=== PATIENT | male | born 1980 | race Caucasian/White ===

== ENCOUNTER 2019-03-11 13:17 | Inpatient (IN) | payer OTHER ==
[~2019-03-11] VITALS: Ht 188 cm; Wt 102.7 kg
[2019-03-11] MEDS ORDERED: SODIUM CHLORIDE 0.9% 1000ML 1,000 ML IV STA (14:02)
[2019-03-11] MEDS ORDERED: ONDANSETRON HCL INJ 2MG/ML 2ML 2 MG/ML VIAL IV ONE (14:15)
[2019-03-11] MEDS ORDERED: FAMOTIDINE 20 MG/2 ML VIAL IV ONE ×2 (14:15→14:19)
[2019-03-11] MEDS ORDERED: SODIUM CHLORIDE 0.9% 1000ML 1,000 ML ONE (14:19)
[2019-03-11] MEDS ORDERED: ONDANSETRON HCL INJ 2MG/ML 2ML 2 MG/ML VIAL ONE (14:19)
[2019-03-11] MEDS ORDERED: IOPAMIDOL 370 MG/ML 200 ML INFUS..BTL INJ ONE (14:41)
[2019-03-11] MEDS ORDERED: SODIUM CHLORIDE 0.9% 50ML 50 ML ONE (14:42)
[2019-03-11] MEDS ORDERED: SODIUM CHLORIDE 0.9% 1000ML 1,000 ML IV SCH (15:32)
--- NOTE | 2019-03-11 15:34 | Diagnostic Imaging Report ---
EXAMINATION: CT of the abdomen and pelvis with contrast. TECHNIQUE: Spiral CT images of the abdomen and pelvis were performed from the lung bases to the lesser trochanters after the intravenous administration of 100 cc of Isovue 370 and the oral administration of 1 or. Coronal and sagittal reformatted images were obtained. COMPARISON: None. CLINICAL HISTORY:Hematuria DISCUSSION: ABDOMEN/PELVIS: LOWER THORAX:Mild bilateral lower lobe dependent atelectasis. HEPATOBILIARY: No focal hepatic lesions. No intra or extrahepatic biliary ductal dilation. GALLBLADDER: No radio-opaque stones or sludge. No wall thickening. SPLEEN: No splenomegaly. PANCREAS: No focal masses or ductal dilatation. ADRENALS: No adrenal nodules. KIDNEYS/URETERS: No hydronephrosis, stones, or solid enhancing mass lesions. Cortical scarring in the inferior pole of the right kidney (coronal image 72). PELVIC ORGANS/BLADDER: Bladder is unremarkable, without focal lesions or wall thickening. Prostate is unremarkable. PERITONEUM/RETROPERITONEUM: No free air or fluid. LYMPH NODES: No intra-abdominal, retroperitoneal, pelvic or inguinal lymphadenopathy. VESSELS: The celiac trunk,superior and inferior mesenteric and bilateral renal arteries are patent The portal, superior mesenteric and splenic veins are patent. GI TRACT: No bowel dilation or evidence of obstruction. Appendix is well identified and normal in caliber BONES AND SOFT TISSUE: No aggressive lytic lesions. Soft tissues are unremarkable. IMPRESSION: 1. No acute abdominal pelvic abnormalities. No renal or ureteral calculi, hydronephrosis or evidence of obstruction. No focal bladder lesions or wall thickening. Signed by: Dr. Anmol Chavez M.D. on 03/11/2019 3:31 PM
[2019-03-11] MEDS ORDERED: HYDROMORPHONE 2MG/ML 2 MG/ML ML IV PRN (15:45)
[2019-03-11] MEDS ORDERED: LORAZEPAM INJ 2 MG/ML VIAL IV ONE (15:45)
[2019-03-11] MEDS ORDERED: ONDANSETRON HCL INJ 2MG/ML 2ML 2 MG/ML VIAL IV PRN (15:45)
[2019-03-11] MEDS ORDERED: ZOLPIDEM TARTRATE 5 MG TAB PO PRN (15:45)
[2019-03-11] MEDS ORDERED: HYDROCODONE/APAP 7.5MG-325MG 1 EA TAB PO PRN (15:45)
[2019-03-11] MEDS ORDERED: DIPHENHYDRAMINE HCL INJ 50 MG/ML VIAL IV PRN (15:45)
[2019-03-11] MEDS ORDERED: CEFTRIAXONE SOD 1 GM VIAL IV ONE (15:45)
--- OUTSIDE RECORDS SUMMARY | 2019-03-11 15:55 | XMS REPORT ---
Author [facility] Address Unknown Phone Unavailable Care Team Providers Care Associate Professor Of Philosophy Name Role Phone Merary AMARAL Unavailable Unavailable Problems This patient has no known problems. Allergies, Adverse Reactions, Alerts This patient has no known allergies or adverse reactions. Medications This patient has no known medications. Results Test Description Test Time Test Comments Text Results Atomic Results Result Comments CT ABD/PEL WITH CONTRAST-HOPD 2019-03-11 15:14:00 [place] [id number] Patient Name: ANIKA CHAMPION MR #: [id number] : 1980 Age/Sex: 38/M Req #: [id number] Adm Physician: Ordered by: KYLE AMARAL MD Report #: [id number] Location: [facility] Room/Bed: Procedure: [id number] HOPD/CT ABD/PEL WITH CONTRAST-HOPD Exam Date: 03/11/19 Exam Time: 1453 REPORT STATUS: Signed EXAMINATION: CT of the abdomen and pelvis with contrast. TECHNIQUE: Spiral CT images of the abdomen and pelvis were performed from the lung bases to the lesser trochanters after the intravenous administration of 100 cc of Isovue 370 and the oral administration of 1 or. Coronal and sagittal reformatted images were obtained. COMPARISON: None. CLINICAL HISTORY:Hematuria DISCUSSION: ABDOMEN/PELVIS: LOWER THORAX:Mild bilateral lower lobe dependent atelectasis. HEPATOBILIARY: No focal hepatic lesions. No intra or extrahepatic biliary ductal dilation. GALLBLADDER: No radio-opaque stones or sludge. No wall thickening. SPLEEN: No splenomegaly. PANCREAS: No focal masses or ductal dilatation. ADRENALS: No adrenal nodules. KIDNEYS/URETERS: No hydronephrosis, stones, or solid enhancing mass lesions. Cortical scarring in the inferior pole of the right kidney (coronal image 72). PELVIC ORGANS/BLADDER: Bladder is unremarkable, without focal lesions or wall t hickening. Prostate is unremarkable. PERITONEUM/RETROPERITONEUM: No free air or fluid. LYMPH NODES: No intra-abdominal, retroperitoneal, pelvic or inguinal lymphadenopathy. VESSELS: The celiac trunk,superior and inferior mesenteric and bilateral renal arteries are patent The portal, superior mesenteric and splenic veins are patent. GI TRACT: No bowel dilation or evidence of obstruction. Appendix is well identified and normal in caliber BONES AND SOFT TISSUE: No aggressive lytic lesions. Soft tissues are unremarkable. IMPRESSION: 1. No acute abdominal pelvic abnormalities. No renal or ureteral calculi, hydronephrosis or evidence of obstruction. No focal bladder lesions or wall thickening. Signed by: Dr. Nima Chavez M.D. on 03/11/2019 3:31 PM Dictated By: NIMA CHAVEZ MD [id number] Transcribed By: ESTELLA on 03/11/19 1531 COPY TO: KYLE AMARAL MD
[2019-03-11] MEDS ORDERED: CEFTRIAXONE SOD 2 GM/NS 100 ML 100 ML IV ONE (16:00)
--- NOTE | 2019-03-11 16:15 | NUR ---
attempted a bangura and was unsuccessful as pt could not tolerate the pain and felt obstruction while trying to insert bangura half way. No bloody discharge after removing the bangura.
[2019-03-11] MEDS ORDERED: LORAZEPAM INJ 2 MG/ML VIAL ONE (16:35)
--- NOTE | 2019-03-11 16:40 | NUR ---
Called [facility] to transport pt to ER.
[2019-03-11] MEDS ORDERED: CEFTRIAXONE SOD 1 GM/NS 50 ML 50 ML IV ONE (16:41)
[2019-03-11] MEDS ORDERED: FAMOTIDINE 20 MG/2 ML VIAL IV SCH (17:00)
--- NOTE | 2019-03-11 17:01 | NUR ---
Report to YAJAIRA Kowalski pt is going to room 299
--- NOTE | 2019-03-11 17:46 | NUR ---
Recvd patient from free standing ER, AAOx3, denies any abdominal discomfort now, not in any distress,Resp even and unlabored, call light in reach, Dr Cervantes here for rounds
[2019-03-11 18:02] VITALS: BP 124/66
--- NOTE | 2019-03-11 19:00 | NUR ---
patient received awake, alert, lying quietly in bed. no c/o pain noted. at the bedside. new orders noted for surgery in am. pm assessment complete. patient instructed to call for assistance when needed.
[2019-03-11 19:30] VITALS: BP 128/60
--- NOTE | 2019-03-11 20:03 | Consultation ---
DATE OF CONSULTATION: 03/11/2019 Dr. Cervantes is dictating a consultation to Dr. Fortino Dumont. REASON FOR CONSULTATION: Hematuria, difficulty urinating. HISTORY: A 38-year-old male who was in an ambulatory emergency room with hematuria and difficulty urinating. The patient states that the problem started 6 days ago after having had sex with his . The next day he noticed that there was difficulty urinating and pain at the tip of his penis. It took him a while to finally pee and when he urinated, he noticed that he had a clump of semen-blood that came out of his penis followed by urination. He stated that after that he was able to urinate well until today when he had difficulty urinating. Again, at this point, he peed and he had blood in the urine. At that point, he went to the [facility]. They could not pass a catheter and I was called in for consultation on the patient. Prior to that last Tuesday when the clump of tissue came out of his penis. He called [facility] and spoke with a urologist. At that time, he was told to abstain from sex for two weeks and then to try again and see if the same thing happen. If the same thing happen where he has blood in the semen then to make an appointment to see them in the office at [facility]. The patient is now in the hospital for evaluation and treatment. PAST MEDICAL HISTORY: Essentially negative. PAST SURGICAL HISTORY: Negative. MEDICATIONS: None. CT scan shows a normal bladder with no clots inside, no thickening of the bladder wall, no stones, no hydronephrosis. On the right kidney of the lower pole, there is a filling defect compatible with scarring, although it is pretty large. I asked the patient if he had any trauma, he denied it, if he had any surgery, he denies that as well. He also denies having kidney stones or being treated for anything for the kidney stones. He also denies having had any sexually transmitted diseases, any instrumentation in his urethra or any trauma of the urethra. He essentially has a completely negative history. RECOMMENDATION: I attempted to pass a catheter into his bladder coude after I placed local anesthetic into the penis. Even placing the local anesthetic into the penis, I had difficulty pushing that it in suggesting that the patient has stricture disease or he had been previously instrumented in the ambulatory emergency room and there was some trauma. Currently, I told the patient that I would like to not introduce anything else into the penis at this point. I would take the patient to the operating room tomorrow to do a retrograde urethrogram, cystoscopy and visual internal urethrotomy or dilatation of the urethra. The cause of the problem at this point is not very well known since the patient has a complete negative history of Sandoval catheterization in the past until today, any instrumentation such as dilatation or cystoscopy and negative history of having had gonorrhea or any other diseases of the urethra. In fact, he tells me that the only surgery he has had is a vasectomy. MD FELICITA Navarro/MODL /[id number]
[2019-03-11] MEDS: FAMOTIDINE 20 MG/2 ML VIAL IV SCH (20:30)
[2019-03-11 20:58] VITALS: BP 128/60
--- NOTE | 2019-03-12 | NUR ---
patient able to void without difficulty. urine remains bloody per patient. no c/o pain noted at this time.
--- NOTE | 2019-03-12 01:09 | History and Physical ---
PRIMARY CARE DOCTOR: Dr. Andrews Root, [facility]. CHIEF COMPLAINT: Trouble passing urine. HISTORY OF PRESENT ILLNESS: Mr. Meyers is a pleasant 38-year-old gentleman with trouble passing urine. He has a urologic history of vasectomy by Dr. Alex Hill, a urologist in [facility]. The patient has reported ailments one time in his past when he got checked. Other than that he has been free of any long-term genitourinary problems. Few days ago, he started to have a small amount of bleeding from his urethra. This got better. However, on the day of admission, he was having trouble passing urine. He started to pass a lot more blood and some small clots came out. The patient denies any history of bleeding diathesis. The patient states he had sex with his five days prior to hospitalization, but prior to that do not detect an issue. He claims he tested negative for STDs prior to getting this time. He comes to the emergency room. It was noted that he has extreme problems passing urine. CT abdomen and pelvis was mostly unremarkable except for distended bladder. Multiple practitioners tried to place a catheter including urologist, where a coude catheter was not able to be placed due to obstruction of the urethra. PAST MEDICAL HISTORY: Vasectomy, one prior diagnosis of infection. MEDICATIONS: The patient is on vitamins with special contents and he calls them high-scale upper end vitamins. ALLERGIES: NO KNOWN DRUG ALLERGIES. SOCIAL HISTORY: No smoking. No drinking. No drugs. 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 FAMILY HISTORY: Noncontributory. REVIEW OF SYSTEMS: GENERAL: No weight changes. OPHTHALMOLOGIC: No double vision. ENT: No mouth ulcers. ENDOCRINE: No known thyroid disease. PULMONARY: No asthma. CARDIAC: No heart attacks. GI: No chronic constipation. : No history of kidney stones in the past. NEUROLOGIC: No seizures. DERMATOLOGIC: No rashes. PSYCHIATRIC: No depression. PHYSICAL EXAMINATION: VITAL SIGNS: Afebrile, vital signs stable, noted per the chart record. GENERAL: In no acute distress, alert and calm. HEENT: Normocephalic and atraumatic. NECK: Supple. Throat midline. LUNGS: Bilateral air entry, clear. CARDIOVASCULAR: S1 and S2. No murmurs, rubs, or gallops. ABDOMEN: Soft and nontender. EXTREMITIES: No clubbing. No cyanosis. There is no edema. INTEGUMENT: No rash. No purpura. LABORATORY DATA: BUN 14 and creatinine 0.9. White count 8, hematocrit 30, and platelets 242. IMPRESSION AND PLAN: 1. Severe urethral obstruction. 2. Urinary retention. 3. Hematuria. 4. History of vasectomy, history of infection long time ago. Continue observation. Continue to allow urinary passage. If an emergency arises, he may require emergency suprapubic catheter placement. The patient in that way he may go for cystoscopy with evaluation and possible dilatation whenever procedures are deemed necessary. specialist, Dr. Sebastien Cervantes has been consulted and we very much appreciate his followup. Thank you very much, Dr. Root, for allowing me and Dr. Dumont, the hospitalist, to participate in the care of Mr. Meyers. Please do not hesitate to call if there are any questions. MD WILLIAM Okeefe/ELADIO /[id number]
[2019-03-12 01:44] VITALS: BP 119/58
[2019-03-12 05:55] VITALS: BP 116/60
--- NOTE | 2019-03-12 06:00 | NUR ---
patient oob to shower. patient continues to void with some difficulty. minimal blood noted with last void this am. surgical consent obtained at this time. patient remains npo and patient verbalizes understanding of this.
[2019-03-12 06:22] LABS: BASOPHILS % 0.4 % (0.0-1.0); EOSINOPHILS # (AUTO) 0.2 (0.0-0.4); EOSINOPHILS % 2.6 % (0.0-6.0); HEMATOCRIT 45.1 % (38.2-49.6); HEMOGLOBIN 15.4 g/dL (14.0-18.0); LYMPHOCYTES # (AUTO) 1.9 (1.0-3.2); LYMPHOCYTES % 24.8 % (18.0-39.1); MEAN CORPUSCULAR HEMOGLOBIN 28.7 pg (28-32); MEAN CORPUSCULAR HGB CONC 34.1 g/dL (31-35); MONOCYTES # (AUTO) 0.9 (0.2-0.8); MONOCYTES % 11.4 % (4.4-11.3); NEUTROPHILS # (AUTO) 4.6 (2.1-6.9); NEUTROPHILS % 60.5 % (38.7-80.0); PLATELET COUNT 246 x10e3/uL (140-360); RED BLOOD COUNT 5.37 x10e6/uL (4.3-5.7); RED CELL DISTRIBUTION WIDTH 13.2 % (11.7-14.4)
[2019-03-12 06:31] LABS: INR 0.96; PARTIAL THROMBOPLASTIN TIME 35.8 seconds (23.8-35.5); PROTHROMBIN TIME 13.3 seconds (11.9-14.5)
[2019-03-12 06:38] LABS: BLOOD UREA NITROGEN 13 mg/dL (7-26); BUN/CREATININE RATIO 13 (6-25); CALCIUM 9.1 mg/dL (8.4-10.2); CARBON DIOXIDE 20 mmol/L (22-29); CHLORIDE 109 mmol/L (98-107); CREATININE, SERUM 0.97 mg/dL (0.72-1.25); EST GLOMERULAR FILTRATION RATE > 60 ML/MIN (60-); GLUCOSE 90 mg/dL (74-118); SODIUM 139 mmol/L (136-145)
--- NOTE | 2019-03-12 06:58 | NUR ---
RECEIVED PATIENT RESTING IN BED. NO ACUTE DISTRESS NOTED, RESPIRATIONS EVEN AND UNLABORED. FAMILY MEMBER AT BEDSIDE. CALL LIGHT WITHIN REACH. BED IN THE LOWEST POSITION.
[2019-03-12 07:38] LABS: ALBUMIN 3.9 g/dL (3.5-5.0); BILIRUBIN,DIRECT 0.2 mg/dL (0.0-0.5)
[2019-03-12 07:57] VITALS: BP 122/58
[2019-03-12] MEDS: FAMOTIDINE 20 MG/2 ML VIAL IV SCH (08:25)
[2019-03-12 08:54] VITALS: BP 122/58
--- NOTE | 2019-03-12 09:04 | NUR ---
PATIENT OFF THE UNIT FOR PROCEDURE AT THIS TIME.
[2019-03-12] MEDS ORDERED: IOPAMIDOL 610MG/1ML 300 MG/ML VIAL IV ONE ×2 (09:22→10:08)
--- NOTE | 2019-03-12 11:01 | NUR ---
Patient back to unit from procedure.
[2019-03-12] MEDS ORDERED: BACTRIM DS TAB1 EACH PO (11:16)
[2019-03-12] MEDS ORDERED: ULTRAM50 MG PO (11:17)
[2019-03-12 11:43] VITALS: BP 144/69
--- NOTE | 2019-03-12 13:19 | NUR ---
Received DC order from MD, patient is in stable condition. Denies pain or discomfort at this time. IV line to left AC DCD with tip intact, pressure applied to site, no bleeding noted. Bangura care education provided to patient, he verbalized understanding. Nurse provided patient with leg bag and bangura drainage bag. Patient teaching on how to change from drainage bag to leg bag provided, he verbalized understanding. Discharge folder which included DC paperwork and prescriptions on hand. Personal items on hand. Patient accompanied to private auto via wheelchair by staff.
[2019-03-12] MEDS ORDERED: SEVOFLURANE INHAL SOLN 250 ML PEN BTL ONE (18:03)
[2019-03-12] MEDS ORDERED: DEXAMETHASONE SOD PHOS INJ 4 MG/ML VIAL ONE (18:03)
[2019-03-12] MEDS ORDERED: PROPOFOL IV EMULSION 10 MG/ML 20 ML VIAL ONE (18:03)
[2019-03-12] MEDS ORDERED: LIDOCAINE HCL 2% LOCAL INJ 5 ML SDV VIAL INJ ONE (18:03)
[2019-03-12] MEDS ORDERED: ONDANSETRON HCL INJ 2MG/ML 2ML 2 MG/ML VIAL ONE (18:03)
[2019-03-12] MEDS ORDERED: MIDAZOLAM HCL 2 MG/2 ML VIAL ONE (19:54)
[2019-03-12] MEDS ORDERED: FENTANYL CITRATE/PF 100MCG/2 ML INJ ONE (19:54)
--- NOTE | 2019-03-13 05:36 | Discharge Summary ---
PRIMARY CARE DOCTOR: Dr. Andrews Root. FINAL DIAGNOSIS: Urethral stricture. B2B OUTSIDE SALES REPRESENTATIVE: Dr. Sebastien Cervantes, Urology. PROCEDURES AND STUDIES PERFORMED: 1. CT of the abdomen pelvis. 2. Cysto with urethral dilation. HISTORY: Per [facility] HOSPITAL COURSE: The patient was admitted with urinary retention due to urethral stricture. The urologist could not pass a coude in, therefore the patient was taken to the OR for cystoscopy and urethral dilation. The patient will go home with Sandoval catheter, Bactrim, and tramadol. The patient will follow up with [facility] urologist. We suspect this may be due to a football injury when he was a teenager. The patient was seen and examined today. CONDITION ON DISCHARGE: Improved. DISCHARGE MEDICATIONS: Please see medication reconciliation. Of note, I have discussed this case with Dr. Cervantes and also I have updated his primary care doctor. ching MD SERAFIN Byers/ELADIO /[id number] cc: [facility]
--- NOTE | 2019-03-20 10:20 | Diagnostic Imaging Report ---
PROCEDURE: X-RAY RETROGRADE PYELOGRAM COMPARISON: None. INDICATIONS: UTI FINDINGS: Multiple intraoperative spot images of the abdomen and pelvis were obtained. There is a urethral stricture. This was dilated with a balloon. Retrograde cannulation of both ureters was accomplished with contrast injected in the upper and lower tracts. No hydronephrosis is seen. A bubble of the proximal right ureter is present. No strictures are identified. There is also a bubble of the proximal left ureter identified. At the completion of the study a Sandoval catheter was placed to stent the urethral dilatation. Cumulative fluoro time: 15 seconds Cumulative area dose product: 116.90 cGycm2 Cumulative air kerma: 3.21 mGy CONCLUSION: 1. Retrograde pyelogram as described above. 2. Please see the full report provided by the performing physician. Tanner Victor D.O. Dictated by: Tanner Victor D.O. on 03/13/2019 at 15:11 Electronically approved by: Tanner Victor D.O. on 03/13/2019 at 15:11
--- NOTE | 2019-03-27 13:37 | Operative Report ---
DATE OF PROCEDURE: 03/11/2019 SURGEON: Sebastien Cervantes MD PREOPERATIVE DIAGNOSIS: Urinary retention. POSTOPERATIVE DIAGNOSIS: Bulbar urethral stricture, severe. OPERATION PERFORMED: Cystoscopy, balloon dilatation of bulbar urethral stricture severe, placement of Sandoval catheter, retrograde urethrogram. ANESTHESIOLOGIST: Staff. ANESTHESIA: General. PROCEDURE IN DETAIL: With the patient under satisfactory general anesthetic, the patient was placed in a supine position the operating table, legs were placed on stirrups, genitalia was then prepped with Betadine simple solution and draped in the usual manner. At this point, a 22-Senegalese cystourethroscope was passed per urethra and at bulbar urethra, a pinpoint stricture was identified. The instruments were removed, retrograde urethrogram was then done at this point and there was a 1 cm stricture located in the bulbar to membranous urethra. At this point, the cystoscope was placed again into the urethra and a 0.35 extra stiff guidewire was introduced under fluoroscopy into the bladder. After that was done, a ureteral dilator balloon was placed in through the urethra stricture, inflated to 12 atmospheres pressure and under fluoroscopy, the stricture opened up. At this point, the balloon was removed. Cystoscopy was performed again. Bladder was normal, no stones nor tumors. Prostate was open. With the guidewire in place, cystoscope was removed. A #20-Senegalese Sandoval catheter [place] tip was then introduced through the guidewire into the bladder, balloon was inflated and at this point, the guidewire was removed. The patient received B and O suppository, the Sandoval catheter was placed to a leg bag, and the patient was taken to recovery room in satisfactory condition. Urological discharge summary at this point is I discussed the case with Dr. Dumont. The patient was given tramadol and Bactrim DS. He will be discharged to go home to follow with his urologist at [facility]. I took pictures of his problem and gave it to the family so they can take it to the urologist at [facility], who will be following him. Sebastien Cervantes MD RRG/MODL /[id number]
== END 2019-03-12 13:21 | disposition home or self-care (01) | DRG 690 ==
LOC: FSED 13:17 → ERHOLD 15:37 → UNDOADMIN 15:48 → ERHOLD 15:48 → MED/SURG3 17:47
PROVIDERS: ADMIT Internal Medicine; ATTEND Internal Medicine
PROC: 0T7D8ZZ Dilation of Urethra, Via Natural or Artificial Opening Endoscopic (ICD-10-PCS; principal; 2019-03-11)
PROC: BT141ZZ Fluoroscopy of Kidneys, Ureters and Bladder using Low Osmolar Contrast (ICD-10-PCS; 2019-03-11)
DX: N13.5 Crossing vessel and stricture of ureter without hydronephrosis (principal); R33.9 Retention of urine, unspecified; Z90.79 Acquired absence of other genital organ(s); R31.9 Hematuria, unspecified
CPT/HCPCS: 36415; 74177; 74420; 80048; 80053; 80076; 81003; 85025; 85610; 85730; 87086; 96374; 96375; 99284; C1726; J0696; J1100; J1200; J2001; J2060; J2250; J2405; J3010; J7030; Q9967